=== PATIENT | male | born 1960 | race Caucasian/White ===

== ENCOUNTER → 2016-12-13 | Outpatient (CLI) | payer MEDICARE ==
[~2016-12-13] MED LIST: ASPIRIN 81M81 MG/TA2 PO; CELEXA40 MG PO; DOXYCYCLINE 10100 MG PO; LEVAQUIN 750MG750 M1 PO; NO HOME MEDICATIONS; PRINIVIL20 MG PO; ZESTRIL40 MG PO
== END ==
LOC: COL.RAD 08:07
DX: I67.1 Cerebral aneurysm, nonruptured (principal)
CPT/HCPCS: Q9967

== ENCOUNTER 2017-01-09 03:19 | Emergency (ER) | payer MEDICARE ==
[~2017-01-09] VITALS: Ht 185.4 cm; Wt 77.3 kg
[~2017-01-09 03:19] MED LIST changes: -ASPIRIN 81M81 MG/TA2 PO; -CELEXA40 MG PO; -PRINIVIL20 MG PO; -ZESTRIL40 MG PO
[2017-01-09 03:22] VITALS: TEMP 97.9
[2017-01-09] MEDS ORDERED: ZESTRIL40 MG PO (03:25)
[2017-01-09 03:49] LABS: BASO % 0.5 % (0.0-2.0); EOS # 0.1 (0.0-0.7); EOS % 0.9 % (0-4.0); GRAN # 4.9 (1.4-6.5); GRAN % 57.7 % (42.2-75.2); HEMOGLOBIN 14.7 g/dl (13.5-18.0); LYMPH # 2.7 (1.2-3.4); LYMPH % 32.2 % (20.0-51.0); MEAN CELL VOLUME 92 fl (80.0-100.0); MEAN CORPUSCULAR HEMOGLOBIN 33 pg (27.0-31.0); MEAN CORPUSCULAR HGB CONC 36 g/dl (33.0-37.0); MEAN PLATELET VOLUME 8.7 fl (7.4-10.4); MONO # 0.7 (0.1-0.6); MONO % 8.5 % (1.7-9.3); PLATELET COUNT 250 K/mm3 (130-400); RED BLOOD COUNT 4.46 M/mm3 (4.20-5.60); REDCELL DISTRIBUTION WIDTH-CV 12.5 % (11.5-14.5); WHITE BLOOD COUNT 8.4 K/mm3 (4.8-10.8)
[2017-01-09 03:55] LABS: PROTHROMBIN TIME 11.6 SECONDS (9.7-12.8)
[2017-01-09 03:57] LABS: PARTIAL THROMBOPLASTIN TIME 32.5 SECONDS (26.0-37.0)
[2017-01-09 05:19] LABS: ADJUSTED CALCIUM 9.2 mg/dL (8.4-10.2); ALANINE AMINOTRANSFERASE 30 U/L (21-72); ALBUMIN 3.7 gm/dL (3.5-5.0); ALKALINE PHOSPHATASE 31 U/L (50-136); ANION GAP 12 mmol/L (7-16); BILIRUBIN,TOTAL 0.9 mg/dL (0.0-1.0); BLOOD UREA NITROGEN 5 mg/dL (9-20); CARBON DIOXIDE 24 mmol/L (22-30); CHLORIDE 95 mmol/L (98-107); CREATININE, serum 0.72 mg/dL (0.66-1.25); GLUCOSE 93 mg/dL (74-106); LIPASE 1177 U/L (23-300); POTASSIUM 3.7 mmol/L (3.4-5.0); SODIUM 131 mmol/L (137-145); TOTAL PROTEIN 6.5 gm/dL (6.4-8.2)
[2017-01-09 05:45] VITALS: PULSE 86
[2017-01-09] MEDS ORDERED: CELEXA40 MG PO (06:04)
[2017-01-09] MEDS ORDERED: ASPIRIN 81M81 MG/TA2 PO (06:05)
[2017-01-09] MEDS ORDERED: PRINIVIL20 MG PO (06:05)
[2017-01-09 06:15] VITALS: BP 105/78
[2017-01-09 06:15] LABS: TROPONIN-I < 0.012 ng/mL (0.000-0.034)
[2017-01-09 06:38] LABS: PH 7 (5-8); SQUAMOUS EPITHELIAL None Seen /hpf; URINE APPEARANCE Clear; URINE BACTERIA None Seen /hpf; URINE BILIRUBIN Negative (NEGATIVE); URINE BLOOD 1+ (NEGATIVE); URINE COLOR Straw; URINE GLUCOSE Negative (NEGATIVE); URINE KETONE Negative (NEGATIVE); URINE RBC 0-2 /hpf; URINE UROBILINOGEN Negative (NEGATIVE); URINE WBC None Seen /hpf
== END 2017-01-09 06:21 | disposition short-term general hospital (02) ==
LOC: COL.ER 03:19
PROVIDERS: Emergency Medicine
DX: I71.4 Abdominal aortic aneurysm, without rupture (principal); K85.90 Acute pancreatitis without necrosis or infection, unspecified; F17.210 Nicotine dependence, cigarettes, uncomplicated
CPT/HCPCS: J2405; J7030; Q9967

== ENCOUNTER → 2018-03-18 | Outpatient (CLI) | payer MEDICARE, BC ==
[~2018-03-18] MED LIST changes: +ASPIRIN 81M81 MG/TA2 PO; +CELEXA40 MG PO; +PRINIVIL20 MG PO; +ZESTRIL40 MG PO
== END ==
LOC: COL.RAD 09:08
DX: I72.6 Aneurysm of vertebral artery (principal)
CPT/HCPCS: Q9967

== ENCOUNTER → 2018-03-26 | Outpatient (CLI) | payer MEDICARE, BC | LOC: COL.RAD 09:22 | DX: I71.2 Thoracic aortic aneurysm, without rupture (principal) | CPT/HCPCS: Q9967 ==

== ENCOUNTER 2018-08-19 13:30 | Emergency (ER) | payer MEDICARE, BC ==
[~2018-08-19] VITALS: Ht 185.4 cm; Wt 90.9 kg
[2018-08-19] MEDS ORDERED: ASPIRIN 32325 MG/TAB PO (13:42)
[2018-08-19] MEDS ORDERED: LIPITOR20 MG PO (13:43)
[2018-08-19] MEDS ORDERED: LIPITOR 40MG TA40 MG PO (13:43)
[2018-08-19 14:47] LABS: BASO % 0.3 % (0.0-2.0); EOS % 0.2 % (0-4.0); GRAN % 76.8 % (42.2-75.2); HEMATOCRIT 48.5 % (42.0-52.0); HEMOGLOBIN 17.1 g/dl (13.5-18.0); LYMPH # 1.9 (1.2-3.4); LYMPH % 14.6 % (20.0-51.0); MEAN CELL VOLUME 94 fl (80.0-100.0); MEAN CORPUSCULAR HEMOGLOBIN 33 pg (27.0-31.0); MEAN CORPUSCULAR HGB CONC 35 g/dl (33.0-37.0); MONO % 7.8 % (1.7-9.3); PLATELET COUNT 273 K/mm3 (130-400); RED BLOOD COUNT 5.16 M/mm3 (4.20-5.60); REDCELL DISTRIBUTION WIDTH-CV 12.8 % (11.5-14.5)
[2018-08-19 14:55] LABS: ALANINE AMINOTRANSFERASE 20 U/L (21-72); ALKALINE PHOSPHATASE 33 U/L (50-136); ANION GAP 10 mmol/L (7-16); AST,SGOT 22 U/L (15-37); BILIRUBIN,TOTAL 0.6 mg/dL (0.0-1.0); BLOOD UREA NITROGEN 6 mg/dL (9-20); CALCIUM 9.5 mg/dL (8.4-10.2); CARBON DIOXIDE 27 mmol/L (22-30); CHLORIDE 97 mmol/L (98-107); CREATININE, serum 0.77 mg/dL (0.66-1.25); GLUCOSE 105 mg/dL (74-106); LIPASE 116 U/L (23-300); SODIUM 134 mmol/L (137-145); TOTAL PROTEIN 7.4 gm/dL (6.4-8.2)
[2018-08-19 14:56] LABS: INR 1.1 (0.8-3.0); PROTHROMBIN TIME 12.1 SECONDS (9.7-12.8)
[2018-08-19 14:59] LABS: PARTIAL THROMBOPLASTIN TIME 32.4 SECONDS (26.0-37.0)
[2018-08-19 15:05] LABS: D-DIMER < 200.00 ng/mLDDu (200-230)
[2018-08-19 15:15] LABS: TROPONIN-I < 0.012 ng/mL (0.000-0.034)
[2018-08-19] MEDS ORDERED: PREDNISONE20 MG PO (15:59)
[2018-08-19 18:20] VITALS: BP 157/113; PULSE 113; TEMP 98.2
== END 2018-08-19 18:37 | disposition home or self-care (01) ==
LOC: COL.ER 13:30
PROVIDERS: Emergency Medicine
DX: R06.02 Shortness of breath (principal); I10 Essential (primary) hypertension; J44.9 Chronic obstructive pulmonary disease, unspecified; E78.5 Hyperlipidemia, unspecified; F17.210 Nicotine dependence, cigarettes, uncomplicated; Z79.82 Long term (current) use of aspirin
CPT/HCPCS: J1630; J2060; J7030; J7512; Q9967

== ENCOUNTER → 2019-01-02 | Outpatient (CLI) | payer MEDICARE ==
[~2019-01-02] MED LIST changes: +ASPIRIN 32325 MG/TAB PO; +LIPITOR 40MG TA40 MG PO; +LIPITOR20 MG PO; +PREDNISONE20 MG PO
== END ==
LOC: COL.RAD 08:31
DX: I65.1 Occlusion and stenosis of basilar artery (principal); I72.6 Aneurysm of vertebral artery
CPT/HCPCS: Q9967

== ENCOUNTER → 2019-01-02 | Outpatient (CLI) | payer MEDICARE | LOC: COL.RAD 12-24 14:00 | DX: I65.1 Occlusion and stenosis of basilar artery (principal) ==

== ENCOUNTER → 2019-08-24 | Outpatient (CLI) | payer MEDICARE | LOC: COL.RAD 12:47 | DX: I71.4 Abdominal aortic aneurysm, without rupture (principal); J43.9 Emphysema, unspecified; Z86.79 Personal history of other diseases of the circulatory system; Z95.828 Presence of other vascular implants and grafts | CPT/HCPCS: Q9967 ==

== ENCOUNTER 2019-08-28 06:17 | Day surgery (SDC) | payer MEDICARE ==
[~2019-08-28] VITALS: Ht 185.4 cm; Wt 91.9 kg
[2019-08-28] VITALS (11 sets, daily range): BP systolic 115–162; BP diastolic 62–98; PULSE 62–83; TEMP 97.7
[2019-08-28] MEDS ORDERED: CELEXA 20MG20 MG/TAB PO (07:22)
[2019-08-28] MEDS ORDERED: TYLENOL 500MG500 MG PO (07:22)
[2019-08-28] MEDS ORDERED: TOPROL XL 25MG25 MG PO (07:25)
[2019-08-28] MEDS ORDERED: ATIVAN 1MG T1 MG/TAB PO (07:26)
[2019-08-28] MEDS ORDERED: ULTRAM 50MG TAB50 MG PO (07:27)
[2019-08-28] MEDS ORDERED: MEVACOR 20M20 MG/TAB PO ×2 (07:27→10:24)
[2019-08-28 07:41] LABS: HEMOGLOBIN 16.9 g/dl (13.5-18.0); MEAN CELL VOLUME 97 fl (80.0-100.0); MEAN CORPUSCULAR HEMOGLOBIN 32 pg (27.0-31.0); MEAN CORPUSCULAR HGB CONC 33 g/dl (33.0-37.0); MEAN PLATELET VOLUME 9.3 fl (7.4-10.4); PLATELET COUNT 280 K/mm3 (130-400); RED BLOOD COUNT 5.24 M/mm3 (4.20-5.60); REDCELL DISTRIBUTION WIDTH-CV 13.2 % (11.5-14.5)
[2019-08-28 07:53] LABS: INR 0.9 (0.8-3.0); PROTHROMBIN TIME 10.6 SECONDS (9.7-12.8)
[2019-08-28 07:55] LABS: CALCIUM 9.3 mg/dL (8.4-10.2); CREATININE, serum 0.83 (0.66-1.25); PARTIAL THROMBOPLASTIN TIME 33.9 SECONDS (26.0-37.0)
--- NOTE | 2019-08-28 09:10 | NUR ---
Pt to procedure at this time.
--- NOTE | 2019-08-28 09:15 | NUR ---
SEE MERGE FOR MEDICATION ADMINISTRATION TIMES AND INTRA AND POST SEDATION ASSESSMENTS.
--- NOTE | 2019-08-28 09:45 | NUR ---
report received from Tuan Nunez.Will await pts arrival from procedure.
--- NOTE | 2019-08-28 10:01 | NUR ---
bedside handoff report given to nicolasa ramírez.. hemostasis noted. TR band at 12 on r hand. fingers slightly dusky to r hand, similar color to l hand. pt denies numbness and tingling. pt alert and oriented. pt currently on 4l nc. nicolasa ramírez at bedside.
[2019-08-28] MEDS ORDERED: ASPIRIN E.C. 8181 MG PO (10:25)
[2019-08-28] MEDS ORDERED: PLAVIX 75MG TAB75 MG PO (10:26)
--- NOTE | 2019-08-28 13:30 | NUR ---
Dressing observed clean,dry,intact and soft to touch after all air relased from band.Sterile gauze and coban applied.Pt ambulated in room.
--- NOTE | 2019-08-28 13:33 | NUR ---
Discharge instructions given to pt.Pt verbalizes understanding.INT removed,catheter tip intact.Pt escorted out via wheelchair by this nurse and assisted into [employer] transportation.
== END 2019-08-28 13:40 | disposition home or self-care (01) ==
LOC: COL.CAR 06:17
PROVIDERS: Internal Medicine Cardiovascular Disease
DX: I25.41 Coronary artery aneurysm (principal); I10 Essential (primary) hypertension; I71.2 Thoracic aortic aneurysm, without rupture; I34.0 Nonrheumatic mitral (valve) insufficiency; Z79.899 Other long term (current) drug therapy; Z79.82 Long term (current) use of aspirin; E78.2 Mixed hyperlipidemia; F17.210 Nicotine dependence, cigarettes, uncomplicated; J44.9 Chronic obstructive pulmonary disease, unspecified; Z95.828 Presence of other vascular implants and grafts
CPT/HCPCS: J1644; J2250; J3010

== ENCOUNTER 2019-09-25 11:19 | Emergency (ER) | payer MEDICARE ==
[~2019-09-25] VITALS: Ht 188 cm; Wt 92.3 kg
[~2019-09-25 11:19] MED LIST changes: +ASPIRIN E.C. 8181 MG PO; +ATIVAN 1MG T1 MG/TAB PO; +CELEXA 20MG20 MG/TAB PO; +MEVACOR 20M20 MG/TAB PO; +PLAVIX 75MG TAB75 MG PO; +TOPROL XL 25MG25 MG PO; +TYLENOL 500MG500 MG PO; +ULTRAM 50MG TAB50 MG PO
[2019-09-25 11:20] VITALS: TEMP 99
[2019-09-25 11:57] LABS: BASO % 0.2 % (0.0-2.0); GRAN # 6.1 (1.4-6.5); GRAN % 70.7 % (42.2-75.2); HEMATOCRIT 44.8 % (42.0-52.0); HEMOGLOBIN 15.6 g/dl (13.5-18.0); LYMPH # 1.3 (1.2-3.4); MEAN CELL VOLUME 95 fl (80.0-100.0); MEAN CORPUSCULAR HEMOGLOBIN 33 pg (27.0-31.0); MEAN CORPUSCULAR HGB CONC 35 g/dl (33.0-37.0); MONO # 1.2 (0.1-0.6); MONO % 13.6 % (1.7-9.3); PLATELET COUNT 219 K/mm3 (130-400); RED BLOOD COUNT 4.73 M/mm3 (4.20-5.60); REDCELL DISTRIBUTION WIDTH-CV 12.6 % (11.5-14.5)
[2019-09-25 12:03] LABS: PROTHROMBIN TIME 12.1 SECONDS (9.7-12.8)
[2019-09-25 12:05] LABS: PARTIAL THROMBOPLASTIN TIME 33.5 SECONDS (26.0-37.0)
[2019-09-25 12:06] LABS: ALANINE AMINOTRANSFERASE 18 U/L (21-72); ALBUMIN 4.1 gm/dL (3.5-5.0); ALKALINE PHOSPHATASE 32 U/L (50-136); ANION GAP 11 mmol/L (7-16); AST,SGOT 25 U/L (15-37); BILIRUBIN,TOTAL 0.7 mg/dL (0.0-1.0); BLOOD UREA NITROGEN 9 mg/dL (9-20); CALCIUM 8.9 mg/dL (8.4-10.2); CARBON DIOXIDE 21 mmol/L (22-30); CHLORIDE 96 mmol/L (98-107); GLUCOSE 109 mg/dL (74-106); POTASSIUM 4.5 mmol/L (3.4-5.0); SODIUM 128 mmol/L (137-145); TOTAL PROTEIN 7.4 gm/dL (6.4-8.2)
[2019-09-25 12:25] LABS: TROPONIN-I < 0.012 ng/mL (0.000-0.035)
[2019-09-25] MEDS ORDERED: ZITHROMAX Z PA250 MG PO (15:19)
[2019-09-25 16:22] VITALS: BP 124/83; PULSE 89
== END 2019-09-25 16:22 | disposition home or self-care (01) ==
LOC: COL.ER 11:19
PROVIDERS: Family Medicine
DX: R07.89 Other chest pain (principal); I10 Essential (primary) hypertension; Z95.9 Presence of cardiac and vascular implant and graft, unspecified; Z79.82 Long term (current) use of aspirin; Z79.02 Long term (current) use of antithrombotics/antiplatelets
CPT/HCPCS: J7030

== ENCOUNTER → 2020-01-06 | Outpatient (CLI) | payer MEDICARE ==
[~2020-01-06] MED LIST changes: +ZITHROMAX Z PA250 MG PO
== END ==
LOC: COL.RAD 09:33
DX: I72.6 Aneurysm of vertebral artery (principal); I77.819 Aortic ectasia, unspecified site; I72.0 Aneurysm of carotid artery; I65.23 Occlusion and stenosis of bilateral carotid arteries; Q25.49 Other congenital malformations of aorta; M47.812 Spondylosis without myelopathy or radiculopathy, cervical region; M48.02 Spinal stenosis, cervical region
CPT/HCPCS: Q9967

== ENCOUNTER → 2020-06-27 | Outpatient (CLI) | payer MEDICARE, MEDICAID | LOC: COL.RAD 10:33 | DX: I77.819 Aortic ectasia, unspecified site (principal); I28.8 Other diseases of pulmonary vessels; Z95.828 Presence of other vascular implants and grafts | CPT/HCPCS: Q9967 ==

== ENCOUNTER → 2021-02-24 | Outpatient (CLI) | payer MEDICARE, MEDICAID | LOC: COL.RAD 12:57 | DX: I65.1 Occlusion and stenosis of basilar artery (principal) | CPT/HCPCS: Q9967 ==

== ENCOUNTER 2021-11-01 11:24 | Emergency (ER) | payer MEDICARE, MEDICAID ==
[~2021-11-01] VITALS: Ht 188 cm; Wt 97.7 kg
[2021-11-01 11:31] VITALS: TEMP 97.7
[2021-11-01 13:45] LABS: BASO % 0.5 % (0.0-2.0); EOS % 0.3 % (0.0-4.0); GRAN # 3.5 K/mm3 (1.4-6.5); GRAN % 53.1 % (42.2-75.2); HEMATOCRIT 42.9 % (42.0-52.0); HEMOGLOBIN 14.8 g/dl (13.5-18.0); LYMPH # 1.9 K/mm3 (1.2-3.4); LYMPH % 28.2 % (20.0-51.0); MEAN CELL VOLUME 96 fl (80.0-100.0); MEAN CORPUSCULAR HEMOGLOBIN 33 pg (27-31); MEAN CORPUSCULAR HGB CONC 35 g/dl (33.0-37.0); MEAN PLATELET VOLUME 9.4 fl (7.4-10.4); MONO # 1.2 K/mm3 (0.1-0.6); MONO % 17.6 % (1.7-9.3); PLATELET COUNT 214 K/mm3 (130-400); RED BLOOD COUNT 4.49 M/mm3 (4.20-5.60)
[2021-11-01 14:12] LABS: ALBUMIN 3.6 gm/dL (3.4-4.8); BILIRUBIN,TOTAL 0.4 mg/dL (0.2-1.2); CALCIUM 9.1 mg/dL (8.4-10.2); CREATININE, serum 1.05 mg/dL (0.72-1.25); POTASSIUM 4.4 mmol/L (3.5-4.5); TOTAL PROTEIN 6.9 gm/dL (6.2-8.1)
[2021-11-01 14:18] LABS: TROPONIN-I 0.012 ng/mL (0.00-0.033)
[2021-11-01 14:33] VITALS: BP 119/80; PULSE 71
== END 2021-11-01 15:09 | disposition home or self-care (01) ==
LOC: COL.ER 11:24
PROVIDERS: Nurse Practitioner
DX: R42 Dizziness and giddiness (principal); I10 Essential (primary) hypertension; F17.200 Nicotine dependence, unspecified, uncomplicated; Z79.899 Other long term (current) drug therapy
CPT/HCPCS: J7030

== ENCOUNTER → 2022-03-07 | Outpatient (CLI) | payer MEDICARE, MEDICAID | LOC: COL.RAD 11:18 | DX: I67.1 Cerebral aneurysm, nonruptured (principal) | CPT/HCPCS: Q9967 ==

== ENCOUNTER → 2022-03-30 | Outpatient (CLI) | payer MEDICARE, MEDICAID | LOC: COL.RAD 08:30 | DX: I71.2 Thoracic aortic aneurysm, without rupture (principal); I71.4 Abdominal aortic aneurysm, without rupture | CPT/HCPCS: Q9967 ==

== ENCOUNTER → 2022-12-26 | Outpatient (CLI) | payer MEDICARE, MEDICAID ==
[~2022-12-26] MED LIST changes: +CEFTIN500 MG PO; +DOXYCYCLINE HY100 MG PO; +PRINIVIL5 MG PO
== END ==
LOC: COL.RAD 12:35
DX: I72.5 Aneurysm of other precerebral arteries (principal); I72.6 Aneurysm of vertebral artery; I67.1 Cerebral aneurysm, nonruptured
CPT/HCPCS: Q9967